=== PATIENT | female | born 1970 | race Caucasian/White ===

== ENCOUNTER 2025-08-31 16:21 | Emergency (ER) | payer MEDICAID ==
[~2025-08-31] VITALS: Ht 160 cm; Wt 120.0 kg
[2025-08-31 16:23] VITALS: O2SAT 97
[2025-08-31 17:28] LABS: BASOPHILS % 1.1 % (0.0-2.0); EOSINOPHILS % 0.1 % (0.0-5.0); HEMATOCRIT. 40.5 % (36.0-48.0); HEMOGLOBIN. 13.4 g/dL (12.0-16.0); LYMPHOCYTES % 7.1 % (20.0-50.0); MEAN PLATELET VOLUME 7.8 fl (7.4-10.4); MONOCYTES % 2.9 % (2.0-8.0); NEUTROPHILS % 88.8 % (40.0-76.0); PLATELET 377 x1000/uL (130-400); RED BLOOD CELL COUNT 4.40 mill/uL (4.2-5.4); RED CELL DISTRIBUTION WIDTH 14.0 % (11.6-14.6)
[2025-08-31 17:39] LABS: INR 1.0
[2025-08-31 17:41] LABS: CREATININE 1.1 mg/dL (0.6-1.0); UREA NITROGEN BLOOD 16.0 mg/dL (9-23)
[2025-08-31 17:42] LABS: TROPONIN I HIGH SENSITIVITY < 4 ng/L (3.0-34)
[2025-08-31 19:44] VITALS: BP 147/94; PULSE 71; RESP 16; TEMP 37; O2SAT 98
== END 2025-08-31 19:45 | disposition home or self-care (01) ==
LOC: ER 16:21
DX: R07.89 Other chest pain (principal); I10 Essential (primary) hypertension
CPT/HCPCS: 36415; 71045; 80048; 84484; 85025; 93005; 99285